=== PATIENT | female | born 1940 | race American Indian/Alaskan Native ===

== ENCOUNTER 2018-03-01 19:07 | Inpatient (IN) | payer MEDICARE ==
[2018-03-01 19:14] VITALS: O2SAT 99
--- NOTE | 2018-03-01 19:36 | ED PDOC ---
HPI: General Adult Time Seen by Provider: 03/01/18 19:33 Chief Complaint (Nursing): Lower Extremity Problem/Injury Chief Complaint (Provider): CONFUSION History Per: Family (77 Y/O FEMALE HERE WITH FAMILY FOR EVALUATION OF ONGOING CONFUSION X 4 MONTHS AND GENERAL FAILURE TO THRIVE. FAMILY STATES SHE LIVES ALONE HERE (THEY LIVE IN [place]). PATIENT HAS BEEN INTERMITTENTLY CONFUSED TRYING TO FEED PEOPLE IN PHOTOS IN HER HOUSE. PATIENT HAS BEEN NOTED TO HAVE WEIGHT LOSS. FAMILY NOTES SHE HAS GIVEN AWAY 10,000 TO UNKNOWN PERSONS OVER THE PHONE. ADDITIONAL COMPLAINT OF LEG SWELLING. NO FEVER/CHILLS/CHEST PAIN/SOB.) Past Medical History Reviewed: Historical Data, Nursing Documentation, Vital Signs Vital Signs: Last Vital Signs Temp 97.6 F 03/01/18 19:11 Pulse 78 03/01/18 19:11 Resp 16 03/01/18 19:11 BP 189/92 H 03/01/18 19:11 Pulse Ox 99 03/01/18 19:47 - Family History Family History: States: No Known Family Hx - Home Medications Home Medications: Ambulatory Orders Medication Instructions Recorded No Known Home Med 03/01/18 - Allergies Allergies/Adverse Reactions: Allergies Allergy/AdvReac Type Severity Reaction Status Date / Time No Known Allergies Allergy Verified 03/01/18 19:11 Review of Systems ROS Statement: Except As Marked, All Systems Reviewed And Found Negative Musculoskeletal: Positive for: Leg Pain Physical Exam - Reviewed Nursing Documentation Reviewed: Yes Vital Signs Reviewed: Yes - Physical Exam Appears: Positive for: Well, Non-toxic, No Acute Distress Head Exam: Positive for: ATRAUMATIC, NORMAL INSPECTION, NORMOCEPHALIC Skin: Positive for: Normal Color, Warm, DRY Eye Exam: Positive for: EOMI, Normal appearance, PERRL ENT: Positive for: Normal ENT Inspection Neck: Positive for: Normal, Painless ROM Cardiovascular/Chest: Positive for: Regular Rate, Rhythm Respiratory: Positive for: CNT, Normal Breath Sounds Gastrointestinal/Abdominal: Positive for: Normal Exam, Soft Back: Positive for: Normal Inspection Extremity: Positive for: Normal ROM Neurologic/Psych: Positive for: Alert, Oriented - ECG O2 Sat by Pulse Oximetry: 99 Disposition - Clinical Impression Clinical Impression: Confusion, Lower leg edema - Patient ED Disposition Is Patient to be Admitted: Transfer of Care - Disposition Disposition: Transfer of Care Disposition Time: 20:00 Condition: FAIR Forms: Snap[employer]ointments (Amharic) Patient Signed Over To: Courtney Mariee Handoff Comments: BLOODWORK/CT HEAD/CXR/EKG/UA/DUPLEX. CRISIS EVAL
[2018-03-01 19:57] LABS: BASO % 0.3 % (0.0-2.0); EOS % 0.3 % (0.0-4.0); HEMOGLOBIN 12.3 g/dL (12.0-16.0); LYMPH # 0.7 K/uL (1.0-4.3); MEAN CELL VOLUME 89.8 fl (81.0-99.0); MEAN CORPUSCULAR HEMOGLOBIN 29.3 pg (27.0-31.0); MEAN CORPUSCULAR HGB CONC 32.6 g/dL (33.0-37.0); MEAN PLATELET VOLUME 8.4 fl (7.2-11.7); MONO # 0.3 K/uL (0.0-0.8); MONO % 8.8 % (0.0-10.0); NEUT # 2.5 K/uL (1.8-7.0); NEUT % 71.6 % (50.0-75.0); RBC 4.21 Mil/uL (3.80-5.20); WHITE BLOOD COUNT 3.5 K/uL (4.8-10.8)
[2018-03-01 20:00] LABS: URINE BILIRUBIN NEGATIVE (NEGATIVE); URINE BLOOD NEGATIVE (NEGATIVE); URINE CLARITY CLEAR (Clear); URINE COLOR YELLOW (YELLOW); URINE GLUCOSE (UA) NEG (Normal); URINE LEUKOCYTE ESTERASE NEG Leu/uL (Negative); URINE PROTEIN NEGATIVE (NEGATIVE); URINE UROBILINOGEN 0.2-1.0 mg/dL (0.2-1.0)
--- NOTE | 2018-03-01 20:12 | ED PDOC ---
- Laboratory Results Result Diagrams: 03/01/18 19:46 03/01/18 19:46 - ECG Interpretation Of ECG: Sinus bradycardia 56 bpm, no acute changes, reviewed by PA and ED attending O2 Sat by Pulse Oximetry: 99 Pulse Ox Interpretation: Normal - Other Rad CXR X-Ray: Interpreted by Me, Viewed By Me X-Ray Interpretation: no acute finding CT head X-Ray: Read By Radiologist X-Ray Interpretation: no acute finding Duplex b/l lower extremities X-Ray: Read By Radiologist X-Ray Interpretation: no DVT Medical Decision Making Medical Decision Making: Case was signed out to curriculum writer from [facility] pending diagnostic testing results and crisis eval. Patient is medically stable for psychiatric evaluation. As per crisis counselor and psychiatrist on-call, Dr. Lopez, patient will be admitted. Patient and family members agree with admission. Repeat BP: 138/74. Patient is medically stable for psychiatric admission. Disposition - Clinical Impression Clinical Impression: Dementia - POA Present On Arrival: None - Disposition Disposition: Admitted as In-Patient Disposition Time: 02:04 Condition: FAIR Results - Lab Results Lab Results: 03/01/18 03/01/18 03/01/18 20:23 20:21 19:46 WBC RBC Hgb Hct MCV MCH MCHC RDW Plt Count MPV Neut % (Auto) Lymph % (Auto) [place] % (Auto) Eos % (Auto) Baso % (Auto) Neut # (Auto) Lymph # (Auto) [place] # (Auto) Eos # (Auto) Baso # (Auto) Sodium Potassium Chloride Carbon Dioxide Anion Gap BUN Creatinine Est GFR ( Amer) Est GFR (Non-Af Amer) Random Glucose Calcium Magnesium Total Bilirubin AST ALT Alkaline Phosphatase Troponin I NT-Pro-B Natriuret Pep Total Protein Albumin Globulin Albumin/Globulin Ratio Urine Color Yellow Urine Clarity Clear Urine pH 7.0 Ur Specific [place] 1.014 Urine Protein Negative Urine Glucose (UA) Neg Urine Ketones Negative Urine Blood Negative Urine Nitrate Negative Urine Bilirubin Negative Urine Urobilinogen 0.2-1.0 Ur Leukocyte Esterase Neg Urine RBC (Auto) 1 Urine Microscopic WBC < 1 Urine Opiates Screen Negative Urine Methadone Screen Negative Ur Barbiturates Screen Negative Ur Phencyclidine Scrn Negative Ur Amphetamines Screen Negative U Benzodiazepines Scrn Negative U Oth Cocaine Metabols Negative U Cannabinoids Screen Negative Alcohol, Quantitative < 10 03/01/18 03/01/18 19:46 19:46 WBC 3.5 L RBC 4.21 Hgb 12.3 Hct 37.8 MCV 89.8 MCH 29.3 MCHC 32.6 L RDW 13.0 Plt Count 138 MPV 8.4 Neut % (Auto) 71.6 Lymph % (Auto) 19.0 L [place] % (Auto) 8.8 Eos % (Auto) 0.3 Baso % (Auto) 0.3 Neut # (Auto) 2.5 Lymph # (Auto) 0.7 L [place] # (Auto) 0.3 Eos # (Auto) 0.0 Baso # (Auto) 0.0 Sodium 144 Potassium 3.9 Chloride 103 Carbon Dioxide 28 Anion Gap 17 BUN 16 Creatinine 0.8 Est GFR ( Amer) > 60 Est GFR (Non-Af Amer) > 60 Random Glucose 100 Calcium 9.6 Magnesium 2.2 Total Bilirubin 0.4 AST 33 ALT 40 Alkaline Phosphatase 42 Troponin I < 0.0120 NT-Pro-B Natriuret Pep 42.5 Total Protein 8.0 Albumin 4.0 Globulin 4.0 H Albumin/Globulin Ratio 1.0 Urine Color Urine Clarity Urine pH Ur Specific Nelson Urine Protein Urine Glucose (UA) Urine Ketones Urine Blood Urine Nitrate Urine Bilirubin Urine Urobilinogen Ur Leukocyte Esterase Urine RBC (Auto) Urine Microscopic WBC Urine Opiates Screen Urine Methadone Screen Ur Barbiturates Screen Ur Phencyclidine Scrn Ur Amphetamines Screen U Benzodiazepines Scrn U Oth Cocaine Metabols U Cannabinoids Screen Alcohol, Quantitative
[2018-03-01 20:13] LABS: ALT/SGPT 40 U/L (9-52); AST/SGOT 33 U/L (14-36); BLOOD UREA NITROGEN 16 mg/dl (7-17); CALCIUM 9.6 mg/dL (8.4-10.2); GFR AFRICAN-AMERICAN > 60; GFR NON-AFRICAN AMERICAN > 60
[2018-03-01 20:27] LABS: B-TYPE NATRIURETIC PEPTIDE 42.5 pg/ml (0-900)
[2018-03-01 20:59] LABS: BARBITURATES, UR NEGATIVE (NEGATIVE); BENZODIAZEPINES, UR NEGATIVE (NEGATIVE); OPIATES, UR NEGATIVE (NEGATIVE); PHENCYCLIDINE, UR NEGATIVE (NEGATIVE)
--- NOTE | 2018-03-01 22:14 | US ---
EXAM: US Duplex Bilateral Lower Extremity Veins CLINICAL HISTORY: 77 years old, female; Signs and symptoms; Swelling of limb; Lower extremity, bilateral; Additional info: Swelling to both legs TECHNIQUE: Real-time duplex ultrasound scan of the bilateral lower extremity veins integrating B-mode two-dimensional vascular structure, Doppler spectral analysis, color flow Doppler imaging and compression. COMPARISON: No relevant prior studies available. FINDINGS: Right deep veins: Unremarkable. No DVT in the right common femoral, femoral, proximal deep femoral or popliteal veins. The veins demonstrate normal color flow, are normally compressible, with normal phasic flow and/or augmentation response. Right superficial veins: Unremarkable. No thrombus in the visualized right great saphenous vein. Left deep veins: Unremarkable. No DVT in the left common femoral, femoral, proximal deep femoral or popliteal veins. The veins demonstrate normal color flow, are normally compressible, with normal phasic flow and/or augmentation response. Left superficial veins: Unremarkable. No thrombus in the visualized left great saphenous vein. Soft tissues: No acute findings. No popliteal cyst. IMPRESSION: No right or left lower extremity venous thrombosis.
[2018-03-02] MEDS ORDERED: Bismuth Subsalicylate 262 mg/15 ml Sus (240 ml) PO PRN (02:57)
[2018-03-02] MEDS ORDERED: Alum-Mag Hydrox-Simethicone Susp (30 mL) PO PRN (02:57)
[2018-03-02] MEDS ORDERED: Magnesium Hydroxide Susp 30 ml UD PO PRN (02:57)
--- NOTE | 2018-03-02 03:06 | PCM.BM ---
<Parish Pressley - Last Filed: 03/02/18 03:05> Treatment Plan Problems - Problems identified on initial assessmt Auditory Hallucinations Date Initiated: 03/02/18 Time Initiated: 03:05 Assessment reference: NA Status: Active Priority: 1 Visual Hallucinations Date Initiated: 03/02/18 Time Initiated: 03:05 Assessment reference: NA Status: Active Priority: 2 Treatment assets and liabiliti Patient Assests: adapts well, cooperative, self-reliant, good support system, negotiates basic needs Patient Liabilities: live alone, imparied memory - Milieu Protocol Maintain good personal hygiene: daily Encourage regular showers, daily Remind patient to perform daily oral care, daily Assist patient to perform ADL's Maintain personal safety: every shift Educate patient to report safety concerns to staff, every shift Monitor environment for contraband/sharps Medication safety: Monitor for expected outcome, potential side effects: every shift, Assess barriers to learning: every shift, Assess readiness for medication education: every shift <Mindi Edge - Last Filed: 03/02/18 13:19> - Diagnosis (1) Dementia with behavioral disturbance Status: Acute Interventions: Medication management, Individual and group therapy, Psychoeducation 03/02/18 13:19 <Vivian Ahuja - Last Filed: 03/05/18 13:06> Family Contact Family contact: Patient agrees to contact, Family has been contacted by patient , Telephone contact initiated by staff Family contact name: Rebecca Mcnally - sister Family contacted how many times per week?: 2 Family contact comment: [phone] - Goals for Treatment Patient goals for treatment: Pt to be encouraged to attend activity and clinical groups 3-5x per week to decrease symptoms of paranoia, delusions and employ reality testing. Pt to be encouraged to participate in group milieu to develop coping skills to reduce psychiatric hospitalizations and further decompensation. Coordinate discharge resources needs by providing referral for psychiatric treatment follow up in the community. Discharge/Continuing Care - Education Needs Education Needs: Family Medication, Family Diagnosis/Disease Process, Family Coping Skills, Family Placement options, Family Community resources, Family Activities of Daily Living, Family Nutrition, Family Health Practices/Safety, Family Personal Hygiene/Grooming, Family Aftercare Safety Plan, Patient Medication, Patient Diagnosis/Disease Process, Patient Placement options, Patient Community resources, Patient Activities of Daily Living, Patient Nutrition, Patient Health Practices/Safety, Patient Personal Hygiene/Grooming, Patient Aftercare Safety Plan, Significant Other Coping Skills - Discharge Discharge Criteria: Tolerates medication w/o severe side effects, Free of paranoid thoughts, Normal sleep pattern, Ability to care for self, Reduction of target symptoms Discharge to:: Home, With Family - Additional Comments 03/05/18 12:59 Pt see and discussed in team meeting. Reason for hospitalization reviewed and discussed. Pt reported feeling "great." Pt continues to have memory issues and deficits. When inquired about the cameras in her apartment, pt continues to believe that "the one's in the lights are still there." Pt reported feeling safe in the hospital and denied seeing any cameras since hospitalization. When asked if she believes that the "cameras" will still be in her apartment upon discharge, pt stated "there is a possibility." Pt's medications reviewed and discussed. Pt verbalized understanding of same. Biomed Tech advised pt that her sister, Rebecca has been contacted and informed copy writer that the plan ia for pt to relocate t [place] with her temporarily. Pt was not opposed to it. SW to continue to follow case. - Treatment Team Participation Discussed with Family/SO: No (Reviewed via telephone) Was Patient/Family/SO present at Treatment Team Meeting: Yes
[2018-03-02 07:04] LABS: IRON 73 ug/dL (37-170)
[2018-03-02 07:13] LABS: % IRON SATURATION 29 % (20-55); TOTAL IRON BINDING CAPACITY 254 ug/dL (250-450)
--- NOTE | 2018-03-02 07:30 | CT ---
PROCEDURE: CT HEAD WITHOUT CONTRAST. HISTORY: CONFUSION X 4 MONTHS COMPARISON: None available. TECHNIQUE: Axial computed tomography images were obtained through the head/brain without intravenous contrast. Radiation dose: Total exam DLP = 728 mGy-cm. This CT exam was performed using one or more of the following dose reduction techniques: Automated exposure control, adjustment of the mA and/or kV according to patient size, and/or use of iterative reconstruction technique. FINDINGS: HEMORRHAGE: No intracranial hemorrhage. BRAIN: No mass effect or edema. No atrophy or chronic microvascular ischemic changes. Mild parenchymal volume loss. Bilateral basal ganglia calcifications. VENTRICLES: Unremarkable. No hydrocephalus. CALVARIUM: Unremarkable. PARANASAL SINUSES: Unremarkable as visualized. No significant inflammatory changes. MASTOID AIR CELLS: Unremarkable as visualized. No inflammatory changes. OTHER FINDINGS: None. IMPRESSION: No acute intracranial abnormality. If symptoms persists, consider further evaluation with MRI. These findings were preliminarily reported at 8:27 p.m. on 03/01/[address] Yrn Grayson from [facility].
[2018-03-02 07:39] LABS: T4 6.02 ug/dl (5.5-11.0)
--- NOTE | 2018-03-02 08:45 | RAD ---
PROCEDURE: CHEST RADIOGRAPH, 1 VIEW HISTORY: LOWER EXTREMITIES COMPARISON: None available. FINDINGS: LUNGS: Hyperinflated lungs. PLEURA: Flattened diaphragms. No pneumothorax or pleural fluid seen. CARDIOVASCULAR: Cardiomediastinal silhouette enlarged. OSSEOUS STRUCTURES: Under changes. VISUALIZED UPPER ABDOMEN: Normal. OTHER FINDINGS: None. IMPRESSION: No active disease.
--- NOTE | 2018-03-02 11:43 | CP.PCM.CON ---
History of Present Illness - History of Present Illness History of Present Illness: Pt is a [age] year old female admitted to the geropsych unit and referred to the press writer for evalaution. On the DRS, pt scored an overall score of 95>. Pt scored in the Deficient Range on all tasks. Pt's Attention, Construction, Conceptualization, Memory and Initiation skills fell in the Deficient Range. On interview, pt had difficulty with higher order processing and understanding complex material. Overall 95 Initation 22 Attention 26 Construction 2 Conceptualization 28 Memory 12 Significant deficits noted. Past Patient History - Past Social History Smoking Status: Never Smoked - CARDIAC Hx Cardiac Disorders: No Hx Hypertension: No - PULMONARY Hx Tuberculosis: No - NEUROLOGICAL HX Cerebrovascular Accident: No Hx Seizures: No - HEENT Hx HEENT Problems: No - RENAL Hx Chronic Kidney Disease: No - ENDOCRINE/METABOLIC Hx Endocrine Disorders: No - HEMATOLOGICAL/ONCOLOGICAL Hx Cancer: No Hx Human Immunodeficiency Virus (HIV): No - INTEGUMENTARY Hx Dermatological Problems: No - MUSCULOSKELETAL/RHEUMATOLOGICAL Hx Musculoskeletal Disorders: No Hx Falls: No - GENITOURINARY/GYNECOLOGICAL Hx Sexually Transmitted Disorders: No - PSYCHIATRIC Hx Substance Use: No - SURGICAL HISTORY Hx Surgeries: No Meds Allergies/Adverse Reactions: Allergies Allergy/AdvReac Type Severity Reaction Status Date / Time No Known Allergies Allergy Verified 03/01/18 19:11 - Medications Medications: Current Medications Acetaminophen (Tylenol 325mg Tab) 650 mg PO Q4 PRN PRN Reason: Pain, moderate (4-7) Al Hydrox/Mg Hydrox/Simethicone (Maalox Plus 30 Ml) 30 ml PO Q4 PRN PRN Reason: Dyspepsia Bismuth Subsalicylate (Pepto-Bismol) 524 mg PO Q4 PRN PRN Reason: Diarrhea Lorazepam (Ativan) 0.5 mg PO HS PRN PRN Reason: Insomnia Stop: 03/16/18 02:58 Lorazepam (Ativan) 0.5 mg PO Q6 PRN PRN Reason: Anixety/Agitation Stop: 03/16/18 02:58 Magnesium Hydroxide (Milk Of Magnesia) 30 ml PO HS PRN PRN Reason: Constipation Memantine (Namenda) 5 mg PO DAILY GER Risperidone (Risperdal Tab) 0.5 mg PO HS GER Results - Vital Signs Recent Vital Signs: Last Vital Signs Temp 97.7 F 03/02/18 05:47 Pulse 61 03/02/18 05:47 Resp 19 03/02/18 05:47 BP 152/94 H 03/02/18 05:47 Pulse Ox 99 03/02/18 02:04 - Labs Result Diagrams: 03/01/18 19:46 03/01/18 19:46 Labs: Laboratory Results - last 24 hr 03/01/18 03/01/18 03/01/18 19:46 19:46 19:46 WBC 3.5 L RBC 4.21 Hgb 12.3 Hct 37.8 MCV 89.8 MCH 29.3 MCHC 32.6 L RDW 13.0 Plt Count 138 MPV 8.4 Neut % (Auto) 71.6 Lymph % (Auto) 19.0 L [place] % (Auto) 8.8 Eos % (Auto) 0.3 Baso % (Auto) 0.3 Neut # (Auto) 2.5 Lymph # (Auto) 0.7 L [place] # (Auto) 0.3 Eos # (Auto) 0.0 Baso # (Auto) 0.0 Sodium 144 Potassium 3.9 Chloride 103 Carbon Dioxide 28 Anion Gap 17 BUN 16 Creatinine 0.8 Est GFR ( Amer) > 60 Est GFR (Non-Af Amer) > 60 Random Glucose 100 Calcium 9.6 Magnesium 2.2 Iron TIBC % Saturation Ferritin Total Bilirubin 0.4 AST 33 ALT 40 Alkaline Phosphatase 42 Troponin I < 0.0120 NT-Pro-B Natriuret Pep 42.5 Total Protein 8.0 Albumin 4.0 Globulin 4.0 H Albumin/Globulin Ratio 1.0 Triglycerides Cholesterol LDL Cholesterol Direct HDL Cholesterol Vitamin B12 Free T4 Thyroxine (T4) TSH 3rd Generation Urine Color Yellow Urine Clarity Clear Urine pH 7.0 Ur Specific [place] 1.014 Urine Protein Negative Urine Glucose (UA) Neg Urine Ketones Negative Urine Blood Negative Urine Nitrate Negative Urine Bilirubin Negative Urine Urobilinogen 0.2-1.0 Ur Leukocyte Esterase Neg Urine RBC (Auto) 1 Urine Microscopic WBC < 1 Urine Opiates Screen Urine Methadone Screen Ur Barbiturates Screen Ur Phencyclidine Scrn Ur Amphetamines Screen U Benzodiazepines Scrn U Oth Cocaine Metabols U Cannabinoids Screen Alcohol, Quantitative 03/01/18 03/01/18 03/02/18 20:21 20:23 05:50 WBC RBC Hgb Hct MCV MCH MCHC RDW Plt Count MPV Neut % (Auto) Lymph % (Auto) [place] % (Auto) Eos % (Auto) Baso % (Auto) Neut # (Auto) Lymph # (Auto) [place] # (Auto) Eos # (Auto) Baso # (Auto) Sodium Potassium Chloride Carbon Dioxide Anion Gap BUN Creatinine Est GFR ( Amer) Est GFR (Non-Af Amer) Random Glucose Calcium Magnesium Iron TIBC % Saturation Ferritin 226.0 Total Bilirubin AST ALT Alkaline Phosphatase Troponin I NT-Pro-B Natriuret Pep Total Protein Albumin Globulin Albumin/Globulin Ratio Triglycerides 52 Cholesterol 230 H LDL Cholesterol Direct 129 HDL Cholesterol 67 Vitamin B12 547 Free T4 Thyroxine (T4) 6.02 TSH 3rd Generation 2.21 Urine Color Urine Clarity Urine pH Ur Specific [place] Urine Protein Urine Glucose (UA) Urine Ketones Urine Blood Urine Nitrate Urine Bilirubin Urine Urobilinogen Ur Leukocyte Esterase Urine RBC (Auto) Urine Microscopic WBC Urine Opiates Screen Negative Urine Methadone Screen Negative Ur Barbiturates Screen Negative Ur Phencyclidine Scrn Negative Ur Amphetamines Screen Negative U Benzodiazepines Scrn Negative U Oth Cocaine Metabols Negative U Cannabinoids Screen Negative Alcohol, Quantitative < 10 03/02/18 03/02/18 05:50 05:50 WBC RBC Hgb Hct MCV MCH MCHC RDW Plt Count MPV Neut % (Auto) Lymph % (Auto) [place] % (Auto) Eos % (Auto) Baso % (Auto) Neut # (Auto) Lymph # (Auto) [place] # (Auto) Eos # (Auto) Baso # (Auto) Sodium Potassium Chloride Carbon Dioxide Anion Gap BUN Creatinine Est GFR ( Amer) Est GFR (Non-Af Amer) Random Glucose Calcium Magnesium Iron 73 TIBC 254 % Saturation 29 Ferritin Total Bilirubin AST ALT Alkaline Phosphatase Troponin I NT-Pro-B Natriuret Pep Total Protein Albumin Globulin Albumin/Globulin Ratio Triglycerides Cholesterol LDL Cholesterol Direct HDL Cholesterol Vitamin B12 Free T4 0.89 Thyroxine (T4) TSH 3rd Generation Urine Color Urine Clarity Urine pH Ur Specific [place] Urine Protein Urine Glucose (UA) Urine Ketones Urine Blood Urine Nitrate Urine Bilirubin Urine Urobilinogen Ur Leukocyte Esterase Urine RBC (Auto) Urine Microscopic WBC Urine Opiates Screen Urine Methadone Screen Ur Barbiturates Screen Ur Phencyclidine Scrn Ur Amphetamines Screen U Benzodiazepines Scrn U Oth Cocaine Metabols U Cannabinoids Screen Alcohol, Quantitative
[2018-03-02 13:55] LABS: FOLATE 13.4 ng/mL
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
--- NOTE | 2018-03-02 19:05 | CP.PCM.CON ---
History of Present Illness - History of Present Illness History of Present Illness: 77 yo female with no significant PMH admitted to psyche unit because of worsening memory and paranoia. Review of Systems - Review of Systems All systems: reviewed and no additional remarkable complaints except (aside from those mentioned above, 12 point system review were negative by me) Past Patient History - Past Social History Smoking Status: Never Smoked Alcohol: None Drugs: Denies - CARDIAC Hx Cardiac Disorders: No Hx Hypertension: No - PULMONARY Hx Tuberculosis: No - NEUROLOGICAL HX Cerebrovascular Accident: No Hx Seizures: No - HEENT Hx HEENT Problems: No - RENAL Hx Chronic Kidney Disease: No - ENDOCRINE/METABOLIC Hx Endocrine Disorders: No - HEMATOLOGICAL/ONCOLOGICAL Hx Cancer: No Hx Human Immunodeficiency Virus (HIV): No - INTEGUMENTARY Hx Dermatological Problems: No - MUSCULOSKELETAL/RHEUMATOLOGICAL Hx Musculoskeletal Disorders: No Hx Falls: No - GENITOURINARY/GYNECOLOGICAL Hx Sexually Transmitted Disorders: No - PSYCHIATRIC Hx Substance Use: No - SURGICAL HISTORY Hx Surgeries: No Meds Allergies/Adverse Reactions: Allergies Allergy/AdvReac Type Severity Reaction Status Date / Time No Known Allergies Allergy Verified 03/01/18 19:11 - Medications Medications: Current Medications Acetaminophen (Tylenol 325mg Tab) 650 mg PO Q4 PRN PRN Reason: Pain, moderate (4-7) Al Hydrox/Mg Hydrox/Simethicone (Maalox Plus 30 Ml) 30 ml PO Q4 PRN PRN Reason: Dyspepsia Amlodipine Besylate (Norvasc) 5 mg PO DAILY [facility] Bismuth Subsalicylate (Pepto-Bismol) 524 mg PO Q4 PRN PRN Reason: Diarrhea Donepezil HCl (Aricept) 5 mg PO HS GER Lorazepam (Ativan) 0.5 mg PO HS PRN PRN Reason: Insomnia Stop: 03/16/18 02:58 Lorazepam (Ativan) 0.5 mg PO Q6 PRN PRN Reason: Anixety/Agitation Stop: 03/16/18 02:58 Magnesium Hydroxide (Milk Of Magnesia) 30 ml PO HS PRN PRN Reason: Constipation Memantine (Namenda) 5 mg PO DAILY [facility] Last Admin: 03/02/18 16:33 Dose: 5 mg Multivitamins/Minerals (Therapeutic-M Tab) 1 tab PO DAILY [facility] Risperidone (Risperdal Tab) 0.5 mg PO HS GER Physical Exam - Constitutional Appears: No Acute Distress - Head Exam Head Exam: ATRAUMATIC - Eye Exam Eye Exam: absent: Scleral icterus - ENT Exam ENT Exam: Mucous Membranes Moist - Neck Exam Neck exam: Negative for: Meningismus - Respiratory Exam Respiratory Exam: absent: Rales, Rhonchi, Wheezes, Respiratory Distress - Cardiovascular Exam Cardiovascular Exam: REGULAR RHYTHM, +S1, +S2 - GI/Abdominal Exam GI & Abdominal Exam: Soft. absent: Tenderness - Rectal Exam Rectal Exam: Deferred - Neurological Exam Neurological exam: Alert - Psychiatric Exam Psychiatric exam: Normal Affect - Skin Skin Exam: Dry, Intact Results - Vital Signs Recent Vital Signs: Last Vital Signs Temp 97 F L 03/02/18 16:21 Pulse 75 03/02/18 16:21 Resp 18 03/02/18 16:21 BP 187/75 H 03/02/18 16:21 Pulse Ox 99 03/02/18 02:04 - Labs Result Diagrams: 03/01/18 19:46 03/01/18 19:46 Labs: Laboratory Results - last 24 hr 03/01/18 03/01/18 03/01/18 19:46 19:46 19:46 WBC 3.5 L RBC 4.21 Hgb 12.3 Hct 37.8 MCV 89.8 MCH 29.3 MCHC 32.6 L RDW 13.0 Plt Count 138 MPV 8.4 Neut % (Auto) 71.6 Lymph % (Auto) 19.0 L [place] % (Auto) 8.8 Eos % (Auto) 0.3 Baso % (Auto) 0.3 Neut # (Auto) 2.5 Lymph # (Auto) 0.7 L [place] # (Auto) 0.3 Eos # (Auto) 0.0 Baso # (Auto) 0.0 Sodium 144 Potassium 3.9 Chloride 103 Carbon Dioxide 28 Anion Gap 17 BUN 16 Creatinine 0.8 Est GFR ( Amer) > 60 Est GFR (Non-Af Amer) > 60 Random Glucose 100 Hemoglobin A1c Calcium 9.6 Magnesium 2.2 Iron TIBC % Saturation Ferritin Total Bilirubin 0.4 AST 33 ALT 40 Alkaline Phosphatase 42 Troponin I < 0.0120 NT-Pro-B Natriuret Pep 42.5 Total Protein 8.0 Albumin 4.0 Globulin 4.0 H Albumin/Globulin Ratio 1.0 Triglycerides Cholesterol LDL Cholesterol Direct HDL Cholesterol Vitamin B12 Folate Free T4 Thyroxine (T4) TSH 3rd Generation Urine Color Yellow Urine Clarity Clear Urine pH 7.0 Ur Specific [place] 1.014 Urine Protein Negative Urine Glucose (UA) Neg Urine Ketones Negative Urine Blood Negative Urine Nitrate Negative Urine Bilirubin Negative Urine Urobilinogen 0.2-1.0 Ur Leukocyte Esterase Neg Urine RBC (Auto) 1 Urine Microscopic WBC < 1 Urine Opiates Screen Urine Methadone Screen Ur Barbiturates Screen Ur Phencyclidine Scrn Ur Amphetamines Screen U Benzodiazepines Scrn U Oth Cocaine Metabols U Cannabinoids Screen Alcohol, Quantitative 03/01/18 03/01/18 03/02/18 20:21 20:23 05:50 WBC RBC Hgb Hct MCV MCH MCHC RDW Plt Count MPV Neut % (Auto) Lymph % (Auto) [place] % (Auto) Eos % (Auto) Baso % (Auto) Neut # (Auto) Lymph # (Auto) [place] # (Auto) Eos # (Auto) Baso # (Auto) Sodium Potassium Chloride Carbon Dioxide Anion Gap BUN Creatinine Est GFR ( Amer) Est GFR (Non-Af Amer) Random Glucose Hemoglobin A1c Calcium Magnesium Iron TIBC % Saturation Ferritin 226.0 Total Bilirubin AST ALT Alkaline Phosphatase Troponin I NT-Pro-B Natriuret Pep Total Protein Albumin Globulin Albumin/Globulin Ratio Triglycerides 52 Cholesterol 230 H LDL Cholesterol Direct 129 HDL Cholesterol 67 Vitamin B12 547 Folate 13.4 Free T4 Thyroxine (T4) 6.02 TSH 3rd Generation 2.21 Urine Color Urine Clarity Urine pH Ur Specific [place] Urine Protein Urine Glucose (UA) Urine Ketones Urine Blood Urine Nitrate Urine Bilirubin Urine Urobilinogen Ur Leukocyte Esterase Urine RBC (Auto) Urine Microscopic WBC Urine Opiates Screen Negative Urine Methadone Screen Negative Ur Barbiturates Screen Negative Ur Phencyclidine Scrn Negative Ur Amphetamines Screen Negative U Benzodiazepines Scrn Negative U Oth Cocaine Metabols Negative U Cannabinoids Screen Negative Alcohol, Quantitative < 10 03/02/18 03/02/18 03/02/18 05:50 05:50 05:50 WBC RBC Hgb Hct MCV MCH MCHC RDW Plt Count MPV Neut % (Auto) Lymph % (Auto) [place] % (Auto) Eos % (Auto) Baso % (Auto) Neut # (Auto) Lymph # (Auto) [place] # (Auto) Eos # (Auto) Baso # (Auto) Sodium Potassium Chloride Carbon Dioxide Anion Gap BUN Creatinine Est GFR ( Amer) Est GFR (Non-Af Amer) Random Glucose Hemoglobin A1c 6.1 Calcium Magnesium Iron 73 TIBC 254 % Saturation 29 Ferritin Total Bilirubin AST ALT Alkaline Phosphatase Troponin I NT-Pro-B Natriuret Pep Total Protein Albumin Globulin Albumin/Globulin Ratio Triglycerides Cholesterol LDL Cholesterol Direct HDL Cholesterol Vitamin B12 Folate Free T4 0.89 Thyroxine (T4) TSH 3rd Generation Urine Color Urine Clarity Urine pH Ur Specific [place] Urine Protein Urine Glucose (UA) Urine Ketones Urine Blood Urine Nitrate Urine Bilirubin Urine Urobilinogen Ur Leukocyte Esterase Urine RBC (Auto) Urine Microscopic WBC Urine Opiates Screen Urine Methadone Screen Ur Barbiturates Screen Ur Phencyclidine Scrn Ur Amphetamines Screen U Benzodiazepines Scrn U Oth Cocaine Metabols U Cannabinoids Screen Alcohol, Quantitative Assessment & Plan (1) Dementia Status: Acute Comment: psyche is managing
[2018-03-03 08:43] LABS: BASO % 0.4 % (0.0-2.0); EOS % 0.8 % (0.0-4.0); HEMOGLOBIN 13.6 g/dL (12.0-16.0); LYMPH # 0.7 K/uL (1.0-4.3); LYMPH % 21.7 % (20.0-40.0); MEAN CELL VOLUME 90.3 fl (81.0-99.0); MEAN CORPUSCULAR HEMOGLOBIN 29.1 pg (27.0-31.0); MEAN CORPUSCULAR HGB CONC 32.3 g/dL (33.0-37.0); MEAN PLATELET VOLUME 8.2 fl (7.2-11.7); MONO # 0.3 K/uL (0.0-0.8); NEUT % 68.1 % (50.0-75.0); NRBC % 0.2 % (0.0-0.0); RBC 4.68 Mil/uL (3.80-5.20); RED CELL DISTRIBUTION WIDTH 13.1 % (11.5-14.5)
[2018-03-03] MEDS: Multivitamin With Minerals Tab PO SCH (09:59)
--- NOTE | 2018-03-03 10:12 | PCM.PYCHPN ---
Psychiatric Progress Note - Psychiatric Progress Note Patient seen today, length of contact: pt seen and evaluated Patient Chief Complaint: pt has remained paranoid and confused and confabulating with poor insight and poor judgement Mental Status Examination - Cognitive Function Orientation: Person, Place, Situation - Mood Mood: Neutral - Affect Affect: Broad - Formal Thought Process Formal Thought Process: Paranoia - Homicidal Ideation Homicidal Ideation: No Goal/Treatment Plan - Goal/Treatment Plan Progress Toward Problem(s) and Goals/Treatment Plan: will continue to titrate meds as needed Disposition as per dr diaz
--- NOTE | 2018-03-03 11:36 | CARD ---
APPROVED REPORT EKG Measurement Heart [id number] <Conclusion> Sinus bradycardia Otherwise normal ECG
[2018-03-04] MEDS: Multivitamin With Minerals Tab PO SCH (08:55)
--- NOTE | 2018-03-04 16:17 | PCM.PYCHPN ---
Psychiatric Progress Note - Psychiatric Progress Note Patient seen today, length of contact: pt seen and evaluated Patient Chief Complaint: pt has been less paranoid and less confused today and atilk confabulating with poor insight and poor judgement and need further stabilization Medication Change: No Medical Record Reviewed: Yes Mental Status Examination - Cognitive Function Orientation: Person, Place, Situation Attention: Poor Concentration: Poor Association: WNL Fund of Knowledge: Poor - Mood Mood: Neutral - Affect Affect: Broad - Formal Thought Process Formal Thought Process: Paranoia - Homicidal Ideation Homicidal Ideation: No Goal/Treatment Plan - Goal/Treatment Plan Progress Toward Problem(s) and Goals/Treatment Plan: will continue to titrate meds as needed Disposition as per dr diaz
[2018-03-05] MEDS: Multivitamin With Minerals Tab PO SCH (09:03)
--- NOTE | 2018-03-05 10:44 | PCM.PYCHPN ---
Psychiatric Progress Note - Psychiatric Progress Note Patient seen today, length of contact: Patient evaluated, case discussed with team, chart reviewed Patient Chief Complaint: "I'm having some memory problems." Problems Identified/Issues Discussed: Patient continues to have chronic memory deficits. She has not had any behavioral issues. She continues to have paranoia. Plater Helper discussed case with patient's sister who stated that the family is requesting to pick her up [place] 24 hour care of her family. The patient is in agreement and acknowledges that she has memory deficits. No adverse effects to medications reported. Medication Change: Yes (Increase Risperdal ) Medical Record Reviewed: Yes Consults ordered or reviewed: Medicine consult Mental Status Examination - Cognitive Function Orientation: Person, Place, Situation Memory: Impaired Attention: Poor Concentration: Poor Association: WNL Fund of Knowledge: Poor Decription of patient's judgement and insights: Chronic poor I/J due to dementia - Mood Mood: Neutral - Affect Affect: Broad - Speech Speech: Appropriate - Formal Thought Process Formal Thought Process: Paranoia Psychotic Thoughts and Behaviors: +Paranoia - Suicidal Ideation Suicidal Ideation: No - Homicidal Ideation Homicidal Ideation: No Goal/Treatment Plan - Goal/Treatment Plan Need for Continued Stay: Severe functional impairment Progress Toward Problem(s) and Goals/Treatment Plan: Dementia w/ behavioral disturbance; Psychosis NOS -Continue Namenda and Aricept -Increase Risperdal -Individual and group therapy -Medicine consult -MVI -Dietitian referral -Disposition planning- family plans to move patient tomorrow to be under the care of family Estimated Date of D/C: 03/06/18
[2018-03-05] MEDS: Cholecalciferol 1,000 INTLU TAB PO SCH (17:26)
[2018-03-06 05:47] VITALS: PULSE 74; RESP 20; TEMP 98.1
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
[2018-03-06] MEDS: Multivitamin With Minerals Tab PO SCH (08:45)
[2018-03-06] MEDS: Cholecalciferol 1,000 INTLU TAB PO SCH (08:45)
[2018-03-06 08:46] VITALS: BP 124/68
== END 2018-03-06 14:10 | disposition home or self-care (01) | DRG 884 ==
LOC: H.ER 19:07 → H.ERHOLD 03-02 00:47 → H.STEP 03-02 02:45
PROVIDERS: ADMIT Psychiatry & Neurology Psychiatry; ATTEND Psychiatry & Neurology Psychiatry
PROC: GZHZZZZ Group Psychotherapy (ICD-10-PCS; principal; 2018-03-02)
DX: F03.91 Unspecified dementia, unspecified severity, with behavioral disturbance (principal); Z68.1 Body mass index [BMI] 19.9 or less, adult; F29 Unspecified psychosis not due to a substance or known physiological condition; R63.4 Abnormal weight loss; R62.7 Adult failure to thrive